=== PATIENT | male | born 1960 | race Caucasian/White ===

== ENCOUNTER 2021-04-29 21:13 | Inpatient (IN) ==
[2021-04-29] MEDS ORDERED: Ipratropium/Albuterol Neb 3 ML IH ONE (21:43)
[2021-04-29] MEDS ORDERED: predniSONE 20 MG TABLET PO ONE (21:43)
[2021-04-29 22:24] LABS: Basophils # 0.1 K/mcL (0.0-0.2); Basophils % 0.5 %; Eosinophils # 0.5 K/mcL (0.0-0.6); Eosinophils % 3.1 %; Hematocrit 46.1 % (37.5-50.1); Hemoglobin 15.7 g/dL (12.9-16.9); Immature Granulocytes % 0.6 % (0-4); Lymphocytes # 2.7 K/mcL (0.6-4.6); Lymphocytes % 15.3 %; Mean Corpuscular HGB Conc 34.1 g/dL (31.6-35.5); Mean Corpuscular Hemoglobin 29.5 pg (28.0-33.3); Mean Corpuscular Volume 86.5 fL (83.0-100.0); Mean Platelet Volume 9.6 fL (9.4-12.4); Monocytes # 1.2 K/mcL (0.0-1.3); Neutrophils # 12.9 K/mcL (1.6-8.9); Platelet Count 318 K/mcL (140-400); Red Blood Count 5.33 M/mcL (4.19-5.50); Red Cell Distribution Width 13.9 % (11.5-14.5); Segmented Neutrophils % 73.5 %; White Blood Count 17.5 K/mcL (4.3-11.1)
[2021-04-29 22:25] LABS: ABG Base Excess 3 mEq/L (-2 to 3); ABG HCO3 28 mEq/L (21-27); ABG Oxygen Saturation 99 % (95-98); ABG PCO2 44 mmHg (35-45); ABG PH 7.42 pH Units (7.32-7.45); ABG PO2 157 mmHg (85-104); ABG TCO2 30 mEq/L (20-26)
[2021-04-29] MEDS ORDERED: Albuterol 2.5 MG/3 ML NEBULIZER ONE (22:26)
[2021-04-29] MEDS ORDERED: Albuterol 2.5 MG/3 ML NEBULIZER IH ONE (22:42)
[2021-04-29 22:45] LABS: Alanine Aminotransferase 19 Units/L (7-52); Albumin 4.5 g/dL (3.5-5.7); Albumin/Globulin Ratio 1.6 (1.1-2.2); Alkaline Phosphatase 63 Units/L (34-104); Aspartate Amino Transferase 17 Units/L (13-39); BUN/Creatinine Ratio 15 (6-26); Bilirubin,Direct 0.1 mg/dL (0.0-0.2); Bilirubin,Indirect 0.4 mg/dL (0.0-1.0); Bilirubin,Total 0.5 mg/dL (0.3-1.0); Blood Urea Nitrogen 12 mg/dL (8-23); Calcium 9.2 mg/dL (8.6-10.3); Carbon Dioxide 29 mEq/L (23-29); Chloride 95 mEq/L (98-107); Globulin 2.9 g/dL (2.4-3.5); Glucose 123 mg/dL (70-105); Osmolality,Calculated 275 (280-300); Sodium 132 mEq/L (136-145); Total Protein 7.4 g/dL (6.4-8.9); Troponin I < 0.03 ng/mL (< 0.04); eGFR For African Americans > 60 (> 60); eGFR For Non-African Americans > 60 (> 60)
[2021-04-29 23:17] LABS: Influenza A PCR Negative (Negative); Influenza B PCR Negative (Negative); Resp. Syncytial Virus PCR Negative (Negative)
[2021-04-29 23:19] LABS: SARS-CoV-2 by PCR (In House) Negative (Negative)
[2021-04-29] MEDS ORDERED: Azithromycin 500 MG in 0.9 % Sodium Chloride 250 ML IVPB ONE (23:22)
[2021-04-29] MEDS ORDERED: cefTRIAXone 1,000 MG in 0.9 % Sodium Chloride 10 ML IVP ONE (23:22)
[2021-04-29] MEDS ORDERED: *HR* Labetalol 20 MG/4 ML SYRINGE IVP ONE (23:36)
[2021-04-30] MEDS ORDERED: Ondansetron 4 MG/2 ML VIAL IVP PRN (00:51)
[2021-04-30] MEDS ORDERED: Melatonin 3 MG TABLET PO PRN (00:51)
[2021-04-30] MEDS ORDERED: Naloxone 0.4 MG/ML INJ IVP PRN (00:51)
[2021-04-30] MEDS ORDERED: methylPREDNISolone 125 MG/2 ML VIAL IVP ONE (00:59)
[2021-04-30] MEDS ORDERED: Saline Nasal Spray 44 ML BOTTLE NS PRN (01:01)
[2021-04-30] MEDS ORDERED: Saliva Stimulant 44.3ml BOTTLE PO PRN (01:01)
[2021-04-30] MEDS ORDERED: Perflutren Lipid Microsphere 1.3 ML in 0.9 % Sodium Chloride 8.7 ML IVP PRN (01:16)
[2021-04-30 01:22] LABS: Basophils # 0.1 K/mcL (0.0-0.2); Basophils % 0.4 %; Eosinophils # 0.1 K/mcL (0.0-0.6); Eosinophils % 0.7 %; Hemoglobin 15.2 g/dL (12.9-16.9); Immature Granulocytes % 0.6 % (0-4); Lymphocytes # 0.8 K/mcL (0.6-4.6); Mean Corpuscular Hemoglobin 28.9 pg (28.0-33.3); Mean Corpuscular Volume 87.5 fL (83.0-100.0); Mean Platelet Volume 9.5 fL (9.4-12.4); Monocytes # 0.5 K/mcL (0.0-1.3); Monocytes % 2.7 %; Neutrophils # 17.7 K/mcL (1.6-8.9); Platelet Count 286 K/mcL (140-400); Red Blood Count 5.26 M/mcL (4.19-5.50); Segmented Neutrophils % 91.6 %; White Blood Count 19.3 K/mcL (4.3-11.1)
[2021-04-30 01:34] LABS: Prothrombin Time 11.5 Seconds (9.4-12.1)
[2021-04-30 01:44] LABS: Alanine Aminotransferase 19 Units/L (7-52); Albumin 4.3 g/dL (3.5-5.7); Albumin/Globulin Ratio 1.4 (1.1-2.2); Alkaline Phosphatase 60 Units/L (34-104); Aspartate Amino Transferase 16 Units/L (13-39); BUN/Creatinine Ratio 15 (6-26); Bilirubin,Total 0.5 mg/dL (0.3-1.0); Blood Urea Nitrogen 13 mg/dL (8-23); Carbon Dioxide 26 mEq/L (23-29); Chloride 93 mEq/L (98-107); Globulin 3.1 g/dL (2.4-3.5); Glucose 207 mg/dL (70-105); Magnesium 1.6 mg/dL (1.6-2.6); Osmolality,Calculated 278 (280-300); Phosphorous 3.8 mg/dL (2.7-4.5); Potassium 4.4 mEq/L (3.5-5.1); Sodium 131 mEq/L (136-145); Total Protein 7.4 g/dL (6.4-8.9); eGFR For African Americans > 60 (> 60); eGFR For Non-African Americans > 60 (> 60)
[2021-04-30] MEDS: Ipratropium/Albuterol Neb 3 ML IH SCH ×6 (01:59→20:01)
[2021-04-30] MEDS ORDERED: *HR* Heparin 5,000 UNIT/ML VIAL SQ SCH (06:00)
[2021-04-30 07:20] LABS: Chol/HDL Ratio 12.6 (0-4.9); Cholesterol 391 mg/dL (< 200); HDL Cholesterol 31 mg/dL (40-59); Thyroid Stimulating Hormone 0.479 mcIU/mL (0.340-5.600); Triglycerides 1275 mg/dL (< 150)
[2021-04-30] MEDS: Budesonide/Formoterol 160/4.5 1 PUFF INH IH SCH ×2 (07:29→20:00)
[2021-04-30] MEDS: MethylPREDNISolone 40 MG/ML VIAL IVP SCH ×3 (08:19→21:52)
[2021-04-30] MEDS: Insulin LISPRO 300 UNITS/3 ML VIAL SUBQ SCH ×4 (08:19→21:53)
[2021-04-30] MEDS: amLODIPine 5 MG TABLET PO SCH (08:20)
[2021-04-30] MEDS: Artificial Tears SOLN 15 ML BOTTLE BOTH EYES SCH ×2 (08:20→21:54)
[2021-04-30] MEDS: Aspirin 81 MG TAB.CHEW PO SCH (08:20)
[2021-04-30] MEDS: cefTRIAXone 1,000 MG in 0.9 % Sodium Chloride Mini Bag 100 ML IVPB SCH (08:21)
[2021-04-30] MEDS: *HR* Enoxaparin 40 MG/0.4 ML SYRINGE SQ SCH ×2 (08:21→21:54)
[2021-04-30] MEDS: Multivit/Ca/Min/Fe/FA 1 TAB TABLET PO SCH (08:21)
[2021-04-30] MEDS ORDERED: Chlorhexidine Rinse 15 ML MOUTHWASH MM SCH (09:00)
[2021-04-30 11:38] LABS: Estimated Average Glucose 192 mg/dl; Hemoglobin A1C 8.3 %
[2021-04-30] MEDS: Acetaminophen 325 MG TABLET PO PRN (15:58)
[2021-04-30] MEDS ORDERED: Dextrose Gel 15 GM/37.5 ML TUBE PO PRN ×2 (19:52)
[2021-04-30] MEDS ORDERED: D5% in Water 1,000 ML IVC PRN (19:52)
[2021-04-30] MEDS ORDERED: *HR* Dextrose 50 % in Water (Syg) 50 ML SYRINGE IVP PRN (19:52)
[2021-04-30] MEDS: Azithromycin 250 MG TABLET PO SCH (21:52)
[2021-05-01] MEDS: Ipratropium/Albuterol Neb 3 ML IH SCH ×7 (00:07→23:25)
[2021-05-01 05:36] LABS: Basophils % 0.1 %; Hematocrit 43.5 % (37.5-50.1); Hemoglobin 14.3 g/dL (12.9-16.9); Immature Granulocytes % 0.7 % (0-4); Lymphocytes # 1.1 K/mcL (0.6-4.6); Lymphocytes % 7.3 %; Mean Corpuscular HGB Conc 32.9 g/dL (31.6-35.5); Mean Corpuscular Hemoglobin 29.5 pg (28.0-33.3); Mean Corpuscular Volume 89.7 fL (83.0-100.0); Monocytes # 0.6 K/mcL (0.0-1.3); Monocytes % 4.2 %; Neutrophils # 12.9 K/mcL (1.6-8.9); Platelet Count 302 K/mcL (140-400); Red Blood Count 4.85 M/mcL (4.19-5.50); Segmented Neutrophils % 87.7 %; White Blood Count 14.7 K/mcL (4.3-11.1)
[2021-05-01 06:27] LABS: BUN/Creatinine Ratio 26 (6-26); Blood Urea Nitrogen 21 mg/dL (8-23); Calcium 9.2 mg/dL (8.6-10.3); Carbon Dioxide 27 mEq/L (23-29); Chloride 92 mEq/L (98-107); Glucose 268 mg/dL (70-105); Osmolality,Calculated 284 (280-300); Sodium 131 mEq/L (136-145); eGFR For African Americans > 60 (> 60); eGFR For Non-African Americans > 60 (> 60)
[2021-05-01] MEDS: MethylPREDNISolone 40 MG/ML VIAL IVP SCH ×2 (07:00→18:13)
[2021-05-01] MEDS: Budesonide/Formoterol 160/4.5 1 PUFF INH IH SCH ×2 (07:25→19:51)
[2021-05-01] MEDS: cefTRIAXone 1,000 MG in 0.9 % Sodium Chloride Mini Bag 100 ML IVPB SCH (07:29)
[2021-05-01] MEDS: *HR* Enoxaparin 40 MG/0.4 ML SYRINGE SQ SCH ×2 (07:30→21:37)
[2021-05-01] MEDS: Aspirin 81 MG TAB.CHEW PO SCH (07:30)
[2021-05-01] MEDS: Multivit/Ca/Min/Fe/FA 1 TAB TABLET PO SCH (07:30)
[2021-05-01] MEDS: amLODIPine 5 MG TABLET PO SCH (07:30)
[2021-05-01] MEDS: Insulin LISPRO 300 UNITS/3 ML VIAL SUBQ SCH ×4 (07:40→19:48)
[2021-05-01] MEDS: Artificial Tears SOLN 15 ML BOTTLE BOTH EYES SCH ×2 (07:41→19:47)
[2021-05-01] MEDS: lisinopriL 10 MG TABLET PO SCH (08:45)
[2021-05-01] MEDS: Azithromycin 250 MG TABLET PO SCH (19:47)
[2021-05-02 02:40] LABS: Basophils % 0.1 %; Hematocrit 42.4 % (37.5-50.1); Hemoglobin 14.1 g/dL (12.9-16.9); Immature Granulocytes % 0.6 % (0-4); Lymphocytes # 0.9 K/mcL (0.6-4.6); Mean Corpuscular HGB Conc 33.3 g/dL (31.6-35.5); Mean Corpuscular Volume 90.2 fL (83.0-100.0); Mean Platelet Volume 10.2 fL (9.4-12.4); Monocytes # 0.7 K/mcL (0.0-1.3); Monocytes % 3.8 %; Neutrophils # 16.8 K/mcL (1.6-8.9); Platelet Count 319 K/mcL (140-400); Red Cell Distribution Width 14.2 % (11.5-14.5); Segmented Neutrophils % 90.5 %; White Blood Count 18.5 K/mcL (4.3-11.1)
[2021-05-02 03:16] LABS: BUN/Creatinine Ratio 36 (6-26); Blood Urea Nitrogen 32 mg/dL (8-23); Calcium 9.7 mg/dL (8.6-10.3); Carbon Dioxide 25 mEq/L (23-29); Chloride 93 mEq/L (98-107); Glucose 244 mg/dL (70-105); Osmolality,Calculated 287 (280-300); Potassium 5.4 mEq/L (3.5-5.1); Sodium 131 mEq/L (136-145); eGFR For African Americans > 60 (> 60); eGFR For Non-African Americans > 60 (> 60)
[2021-05-02] MEDS: Acetaminophen 325 MG TABLET PO PRN (03:25)
[2021-05-02] MEDS: Ipratropium/Albuterol Neb 3 ML IH SCH ×6 (03:58→23:41)
[2021-05-02] MEDS: MethylPREDNISolone 40 MG/ML VIAL IVP SCH (05:29)
[2021-05-02] MEDS: Budesonide/Formoterol 160/4.5 1 PUFF INH IH SCH ×2 (07:26→20:16)
[2021-05-02] MEDS: cefTRIAXone 1,000 MG in 0.9 % Sodium Chloride Mini Bag 100 ML IVPB SCH (08:04)
[2021-05-02] MEDS: *HR* Enoxaparin 40 MG/0.4 ML SYRINGE SQ SCH ×2 (08:05→08:31)
[2021-05-02] MEDS: Insulin LISPRO 300 UNITS/3 ML VIAL SUBQ SCH ×4 (08:05→20:40)
[2021-05-02] MEDS: Artificial Tears SOLN 15 ML BOTTLE BOTH EYES SCH ×2 (08:06→21:20)
[2021-05-02] MEDS: amLODIPine 5 MG TABLET PO SCH (08:06)
[2021-05-02] MEDS: Multivit/Ca/Min/Fe/FA 1 TAB TABLET PO SCH (08:06)
[2021-05-02] MEDS: Aspirin 81 MG TAB.CHEW PO SCH (08:06)
[2021-05-02] MEDS: lisinopriL 10 MG TABLET PO SCH ×2 (08:06→08:41)
[2021-05-02] MEDS: *HR* Metformin 500 MG TABLET PO SCH ×2 (09:56→17:05)
[2021-05-02 12:42] LABS: BUN/Creatinine Ratio 33 (6-26); Blood Urea Nitrogen 26 mg/dL (8-23); Calcium 9.5 mg/dL (8.6-10.3); Carbon Dioxide 25 mEq/L (23-29); Chloride 92 mEq/L (98-107); Glucose 260 mg/dL (70-105); Osmolality,Calculated 282 (280-300); Potassium 4.7 mEq/L (3.5-5.1); Sodium 129 mEq/L (136-145); eGFR For African Americans > 60 (> 60); eGFR For Non-African Americans > 60 (> 60)
[2021-05-02] MEDS: Azithromycin 250 MG TABLET PO SCH (20:20)
[2021-05-03] MEDS: Ipratropium/Albuterol Neb 3 ML IH SCH ×3 (04:27→11:39)
[2021-05-03 05:46] LABS: Basophils % 0.1 %; Eosinophils # 0.1 K/mcL (0.0-0.6); Eosinophils % 0.4 %; Hematocrit 44.1 % (37.5-50.1); Hemoglobin 14.2 g/dL (12.9-16.9); Immature Granulocytes % 0.8 % (0-4); Lymphocytes # 2.3 K/mcL (0.6-4.6); Lymphocytes % 14.5 %; Mean Corpuscular HGB Conc 32.2 g/dL (31.6-35.5); Mean Corpuscular Hemoglobin 28.5 pg (28.0-33.3); Mean Corpuscular Volume 88.4 fL (83.0-100.0); Mean Platelet Volume 10.2 fL (9.4-12.4); Monocytes # 1.1 K/mcL (0.0-1.3); Neutrophils # 12.1 K/mcL (1.6-8.9); Platelet Count 310 K/mcL (140-400); Red Blood Count 4.99 M/mcL (4.19-5.50); Red Cell Distribution Width 14.1 % (11.5-14.5); Segmented Neutrophils % 77.2 %; White Blood Count 15.6 K/mcL (4.3-11.1)
[2021-05-03 06:04] LABS: BUN/Creatinine Ratio 32 (6-26); Blood Urea Nitrogen 24 mg/dL (8-23); Calcium 8.9 mg/dL (8.6-10.3); Carbon Dioxide 28 mEq/L (23-29); Chloride 93 mEq/L (98-107); Glucose 155 mg/dL (70-105); Osmolality,Calculated 277 (280-300); Potassium 4.3 mEq/L (3.5-5.1); Sodium 130 mEq/L (136-145); eGFR For African Americans > 60 (> 60); eGFR For Non-African Americans > 60 (> 60)
[2021-05-03 07:46] VITALS: O2SAT 96
[2021-05-03] MEDS: *HR* Metformin 500 MG TABLET PO SCH (07:46)
[2021-05-03] MEDS: Aspirin 81 MG TAB.CHEW PO SCH (07:46)
[2021-05-03] MEDS: Multivit/Ca/Min/Fe/FA 1 TAB TABLET PO SCH (07:46)
[2021-05-03] MEDS: amLODIPine 5 MG TABLET PO SCH (07:46)
[2021-05-03] MEDS: Artificial Tears SOLN 15 ML BOTTLE BOTH EYES SCH (07:47)
[2021-05-03] MEDS: *HR* Enoxaparin 40 MG/0.4 ML SYRINGE SQ SCH (07:48)
[2021-05-03] MEDS: cefTRIAXone 1,000 MG in 0.9 % Sodium Chloride Mini Bag 100 ML IVPB SCH (07:48)
[2021-05-03] MEDS: Insulin LISPRO 300 UNITS/3 ML VIAL SUBQ SCH ×2 (07:50→11:43)
[2021-05-03] MEDS: Budesonide/Formoterol 160/4.5 1 PUFF INH IH SCH (08:05)
[2021-05-03] MEDS ORDERED: lisinopriL 10 MG TABLET PO SCH (09:00)
[2021-05-03] MEDS ORDERED: predniSONE 20 MG TABLET PO SCH (09:00)
[2021-05-03] MEDS ORDERED: Benzonatate 100 MG CAPSULE PO PRN (10:19)
[2021-05-03 11:06] VITALS: BP 132/76; PULSE 79; TEMP 97.9
== END 2021-05-03 15:41 | disposition home or self-care (01) | DRG 871 ==
LOC: 3NENU 21:13 → EMEROOARM 21:13 → OBSVTOIN 04-30 → SUATTDRO 04-30 → 3NENU 04-30 00:35
PROVIDERS: ADMIT Internal Medicine; ATTEND Internal Medicine